=== PATIENT | male | born 1995 | race Caucasian/White ===

== ENCOUNTER 2016-10-30 14:38 | Emergency (ER) | payer OTHER ==
[~2016-10-30] VITALS: Ht 177.8 cm; Wt 87.8 kg
[~2016-10-30 14:38] MED LIST: BUSPAR10 MG PO; GEODON20 MG PO; KLONOPIN0.5 M1 PO; STRATTERA25 MG PO; VYVANSE30 MG PO
[2016-10-30] MEDS ORDERED: ERYTHROMYC1 APPLICAT RIGHT EYE (16:26)
[2016-10-30 16:47] VITALS: BP 140/82
== END 2016-10-30 16:48 | disposition home or self-care (01) ==
LOC: EME 14:38 → EXP 14:38
PROC: 08C8XZZ Extirpation of Matter from Right Cornea, External Approach (ICD-10-PCS; principal; 2016-10-30)
DX: T15.01XA Foreign body in cornea, right eye, initial encounter (principal); Y99.0 Civilian activity done for income or pay
CPT/HCPCS: 99281; 99284